=== PATIENT | female | born 1965 | race Caucasian/White ===

== ENCOUNTER 2019-10-10 09:10 | Day surgery (SDC) | payer OTHER, MEDICARE ==
[2019-10-08 12:55] LABS: MCH 27.6 pg (26.0-34.0); MCHC 31.3 g/dL (31.0-37.0); MCV 88.4 fL (80.0-100.0); MEAN PLATELET VOLUME 9.8 fL (7.4-10.4); RBC 3.62 10x6/uL (4.00-5.40); RDW 14.2 % (11.5-14.5)
[~2019-10-10] VITALS: Ht 162.6 cm; Wt 68.9 kg
[~2019-10-10 09:10] MED LIST: ALBUTEROL SULF8.5 GM INH; ASPIRIN EC325 M1 PO; CELEBREX200 MG PO; CELEXA40 MG PO; COZAAR50 MG PO; CYCLOBENZAPRINE10 MG PO; HYDROCODON-ACE1 EA10 PO; LIPITOR10 MG PO; LYRICA150 MG PO; NORVASC5 MG PO; OMEPRAZOLE20 M1 PO; XANAX0.5 MG PO
[2019-10-10 09:57] VITALS: Ht 162.6 cm; Wt 68.9 kg
[2019-10-10] MEDS ORDERED: HYDROCODON-ACE1 EA10 PO (19:16)
--- NOTE | 2019-10-10 21:20 | NUR ---
PATIENT DISCHARGED. NO FURTHER QUESTIONS. ALL PAPERWORK WAS GONE OVER WITH PATEINT AND . PATIENT ESCORTED VIA WHEELCHAIR BY OLIVIA HERNANDEZ TO ER. PATIENT LEFT IN PERSONAL VECHILE WITH HOME.
--- NOTE | 2019-10-15 13:10 | OP ---
PATIENT NAME: LIZZY ETSRADA MEDICAL RECORD: [id number] :67 LOCATION:[facility] ADMISSION DATE: SURGEON: NADJA MEYER MD DATE OF OPERATION: 10/10/2019 PREOPERATIVE DIAGNOSES: Lumbar spinal stenosis and foraminal stenosis at L2-L3 and L3-L4 with right L3 and L4 radiculopathy. POSTOPERATIVE DIAGNOSES: Lumbar spinal stenosis and foraminal stenosis at L2-L3 and L3-L4 with right L3 and L4 radiculopathy. SURGEON: Nadja Meyer MD HOOP CUTTER: Jeronimo Billings APN PROCEDURES: Lumbar laminectomy, medial facetectomy and foraminotomy at L2-L3 and L3-L4 on the right with Tyler retractor. DESCRIPTION OF TECHNIQUE: After induction of general endotracheal anesthesia, the patient was rolled prone on a Javed frame. Lumbar spine was prepped and draped in usual sterile fashion. Fluoroscopic x-ray and a spinal needle localized the L2-L3 interspace. Infiltration of 1:100,000 epinephrine with 1% lidocaine was used for hemostasis on the skin. A skin incision was carried out with a #15 blade from L2 spinous process to L4 spinous process. The fascia was incised with a Bovie cautery. Using a subperiosteal dissection, the spinous processes and lamina of L2, L3 and L4 were exposed. The levels were confirmed with fluoroscopic x-ray. A microscope and Midas Fabricio drill were used to perform a laminectomy at L2, L3 and L4. Following this, the hypertrophied ligamentum flavum was removed with Cloward rongeurs. The L2, L3 and L4 nerve roots were decompressed well. Meticulous hemostasis was maintained throughout the wound. The wound was irrigated with copious amounts of Ancef irrigant solution. The retractor was removed. The fascia was closed with 2-0 Vicryl suture. The subdermal layer was closed with 3-0 Vicryl suture. The skin was closed with kenzie. A sterile dressing was applied to the wound. The patient was awakened in good condition and taken to recovery. All counts were reported as correct. Estimated blood loss was minimal. TRANSINT:[id number] Voice Confirmation ID: [id number] DOCUMENT ID: [id number] NADJA MEYER MD at 1310 CC: [id number] DICTATION DATE: 10/15/19 9926 GAMEMASTER: 10/15/19 1232 [facility] 10/10/19 [facility] [address] [place] [address]
== END 2019-10-10 21:20 | disposition home or self-care (01) ==
LOC: D.OPS 09:10 → D.PAN 12:15 → D.OPS 12:15 → D.PAN 14:05 → D.OPS 14:05 → D.PAN 16:05 → D.MS 19:10 → D.OPS 21:20
PROVIDERS: Anesthesiology; ATTEND Neurological Surgery
DX: M48.061 Spinal stenosis, lumbar region without neurogenic claudication (principal); M54.10 Radiculopathy, site unspecified; M54.16 Radiculopathy, lumbar region